=== PATIENT | female | born 1965 | race Caucasian/White ===

== ENCOUNTER 2024-12-27 13:31 | Outpatient (AMB) | payer BC, SELFPAY ==
--- NOTE | 2024-12-27 13:50 | ORTHONT_ITS ---
Vital signs 12/27/24 13:53 Height 1.55 m Height Method Stated Weight 61.83 kg Weight Measurement Method Standing Scale BMI 25.7 BP 163/77 H Blood Pressure Source Automatic Cuff Blood Pressure Location Left Upper Arm Position Sitting Respiration 18 Pulse 60 Pulse Source Monitor Temp 98.2 F Temp Source Temporal Artery Scan Pulse Oximetry (%) 97 Oxygen Delivery Method Room Air Med/Allergies Allergies & Medications Allergies Sulfa (Sulfonamide Antibiotics) Allergy (Verified 12/27/24 13:56) Medication Reconciliation ferrous fumarate 325 mg (106 mg iron) tablet (Ferretts) 325 mg PO QDAY 12/27/24 [History Confirmed 12/27/24] magnesium 250 mg tablet 250 mg PO QDAY 12/27/24 [History Confirmed 12/27/24] Exam Exam Breathing is nonlabored. Patient has a normal mood and affect. Bilateral extremities were evaluated and demonstrates sensation intact to light touch. Palpable pedal pulses are present. No significant edema is present. Bilateral hips were examined. The patient has no pain with log roll of the hips. Internal rotation to 30 degrees and external rotation to 30 degrees is painless. Negative FADIR. Left knee was examined today. The left knee is in reasonable alignment. Range of motion from 0-120 degrees. Knee is stable to varus and valgus as well as AP translation with <5mm. Patient has a negative McMurrays. There is no pain with patellofemoral compression and no crepitus noted. The knee is nontender to palpation. The right knee was also examined. The right knee is in valgus alignment. Range of motion from 0-115 degrees. Knee is stable to varus and valgus as well as AP translation with <5mm. Patient has a negative McMurrays. There is no pain with patellofemoral compression and no crepitus noted. The knee is tender to palpation laterally Right knee x-rays demonstrate severe valgus arthritis with complete joint space narrowing laterally on the right Assessment and Plan Problem List (1) Arthritis of knee, right: Status: Acute (2) Arthritis of both knees: Status: Acute Plan: patient is a pleasant 59-year-old female with right greater than left knee arthritis and knee pain. She has failed conservative treatment including injections and anti-inflammatories, and home exercises. 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 we thus discussed total knee replacement is a reasonable option for the right side as this is worse the nature and purpose of the right total knee replacement, alternative method(s) of treatment, the material risks involved, and the possibility of complications were fully explained to the patient. The patient does NOT have any of the following contraindications to TKA: - Active infection of the knee joint, OR - Active systemic bacteremia, OR - Active skin infection or open wound at surgical site, OR - Neuropathic arthritis, OR - Severe, rapidly progressive neurological disease, OR - Severe medical condition that makes risks of surgery outweigh the potential benefit The patient was told the most common risks and complications associated with a total knee replacement include, but are not limited to: blood clots in the leg, fatal pulmonary embolism, dislocation of the prosthesis, intraoperative and postoperative fractures of the femur or tibia, infection, failure of the prosthesis or grafting materials, complications from anesthesia, reactions to blood transfusions, postoperative leg length inequality, instability of the knee replacement, nerve damage or injury, vascular injury, delayed wound healing, infection, other injury or even . In addition, there are risks associated with anesthesia given during this operation. Also, the patient was told that after undergoing a total knee replacement there may still be persistent pain or disability. The patient was informed that the success of this operation in part depends upon the mechanical devices which are going to be implanted and that these devices can fail or malfunction, and may need to be repaired or replaced and there are no guarantees as to the longevity of this device or its parts and that it or its parts could fail prematurely. The patient was also notified that during the course of surgery, there may be a need to use bone graft from donors, and that any bone graft used will be carefully screened for communicable diseases, including AIDS, hepatitis, Brandon-Creutzfeldt, or other diseases, but despite the screening procedures, there is a small chance that they could contract one of these diseases. Finally, the patient was asked to follow completely and fully with all advice and recommended treatments, and that recovery and ultimate outcome are affected by their compliance with recommended treatment. We discussed the risks, benefits and treatment alternatives, and the patient is interested in proceeding with surgery. We will try to set this up as expeditiously as possible. Office Procedures GNS Level of Care Nursing/Assessment Patient Status: Initial/New Patient Nursing Assessment/Reassesment: Medication Reconciliation, Update PMH in EMR and Vital Signs Coordination of Care: Complex Care and Chronic Disease 1-5, Education Complex Pt/Fam, Consent,records obtained, informed consent, 1 Ins Authorization, Lab and Imaging orders, Results/Orders obtained and Staff clarify orders New Patient Charge New Patient Point Assignment: 1124 New Patient Point Charge: [employer]ST[employer]ER Level 4 ([id number]) MA Intake Visit Data Collection New Patient or Established: New Patient (never been to [facility]) Reason for Visit:: BL KNEE PAIN Seen by Clinical Staff ONLY (RN/MA): No PCP or OBGYN visit in last 3 months: Yes Hx Now: No Do You Feel Safe at Home: Yes Authorities Contacted: N/A Questionairres Past Medical History Past Medical History Have you ever been diagnosed with any of the following: Subjective Visit Visit for: new patient and knee (BILATERAL) Immunization / Flu Flu Vaccine in the Last 12 Months: Yes Flu Vaccine Exclusion Criteria: Already Received History of Present Illness Chief complaint: BILATERAL KNEE PAIN R>L Date of injury / onset of symptoms: 3 YEARS Date of 1st surgery (if applicable): 2019 R KRYSTIAN HISTORY OF PRESENT ILLNESS I, Marcos Kwon, have obtained verbal consent from the patient, to be recorded during this encounter which may include, but not limited to, medical history, examination, treatment plans, and relevant health information.? Patient was informed that recording will be read and reviewed by myself before inclusion in the medical chart. The patient is a 59-year-old female who presents for evaluation of bilateral knee pain, with the right knee being worse than the left. She does not have any medical conditions. She states the pain has been going on for 3 years. She comes from [place] where she used to get injections at. They did help. She has gotten bilateral knee injections total of six on each knee. She is a registered nurse. Had right hip replacement in 2019. . She reports experiencing bilateral knee pain for the past 3 years, with the right knee being more severe than the left. She has received a total of 6 injections in each knee while in [place], which provided some relief. Personal History Occupation: REGISTERED NURSE Pain Pain level (0-10): 3 Pain duration: ON AND OFF Pain location: outside (lateral) and anterior Pain quality: sharp, dull and aching Pain timing: increases with activity Associated signs & symptoms: none Ambulatory data Ambulatory device: none Treatments Number of previous injections: 6 (BILATERAL) Improvement with previous injections: Yes Number of Physical Therapy sessions: 0 Improvement with PT: No Improvement with NSAIDS: no Review of Systems Review of Systems: All systems negative unless otherwise noted in HPI.
[2024-12-27 13:53] VITALS: BP 163/77; PULSE 60; RESP 18; TEMP 36.8; O2SAT 97; BMI 25.7
--- NOTE | 2024-12-27 13:58 | XR_ITS ---
EXAMINATION: Bilateral. Knees 2 views Right lateral knee left lateral knee 2 views Bilateral axial knee single view TECHNIQUE: Bilateral AP knees standing single view, bilateral. Knees standing single view flexion Standing bilateral knee left lateral knee 2 views Bilateral axial knee single view total 5 views Date and time: December 27, 2024, 1419 hours INDICATIONS: Bilateral knee pain beginning 3 years ago FINDINGS: Significant osteopenia Severe narrowing [id number] lateral joint space right knee Advanced osteoarthritis lateral patellofemoral joints right knee Advanced narrowing [id number] lateral joint space left knee Advanced osteoarthritis medial patellofemoral joints No fractures IMPRESSION: Bilateral advanced tricompartment osteoarthritis, including severe narrowing lateral joint spaces bilaterally
== END 2024-12-27 14:54 | disposition home or self-care (01) ==
PROVIDERS: PCP Internal Medicine; Referring Provider Internal Medicine; Supervising Provider Orthopaedic Surgery Adult Reconstructive Orthopaedic Surgery; Visit Provider Orthopaedic Surgery Adult Reconstructive Orthopaedic Surgery
DX: M25.562 Pain in left knee (principal); M25.561 Pain in right knee; M17.0 Bilateral primary osteoarthritis of knee
CPT/HCPCS: 73564; 99204; G0463